=== PATIENT | female | born 1940 | race Caucasian/White ===

== ENCOUNTER 2017-10-15 15:30 | Emergency (ER) | payer MEDICARE, BC ==
[2017-10-15 15:41] VITALS: O2SAT 100
[2017-10-15] MEDS ORDERED: TRANDATE 20 MG/5 ML SYRINGE IV ONE ×2 (15:52→15:55)
--- NOTE | 2017-10-15 15:53 | ERPHSYRPT ---
- History of Present Illness Time Seen by Provider: 10/15/17 15:32 Source: patient, EMS, group home records Patient Subjective Stated Complaint: PT FROM [facility] PT STATES SHE WAS WATCHING TV AND. NOTICED SOME BLOOD COMING FROM HIS RIGHT EAR. PT STATES SHE HAS ALSO HAD A HEADACHE TODAY STATES. THEY GAVE HER TWO TYLENOL EARLIER TODAY. Triage Nursing Assessment: PT ALERT AND ORIENTED X 3 PIN WARM ADN DRY RESP EASY NON LABORED BLEEDING NOTED FROM RIGHT EAR. Physician History: CC: headache Hx: 77 y/o patient from [facility]. She sees Dr Sarah Daniels. Bloody nose this AM. Stopped. Now right ear bleeding. She complains of headache. No fall or injury. She takes coumadin. She has been on cipro recently. Timing/Duration: today Severity: moderate Allergies/Adverse Reactions: Penicillins Allergy (Severe, Verified 08/02/16 18:35) Difficulty Breathing vancomycin Allergy (Severe, Verified 08/02/16 18:35) Blisters latex Allergy (Intermediate, Verified 08/02/16 18:35) Itching Sulfa (Sulfonamide Antibiotics) Allergy (Intermediate, Verified 08/02/16 18:35) Rash adhesive Adverse Reaction (Intermediate, Verified 08/02/16 18:35) Rash atorvastatin calcium [From Lipitor] Adverse Reaction (Intermediate, Verified 18:35) Joint Aches fragrance Adverse Reaction (Intermediate, Uncoded 08/02/16 18:35) Itching Home Medications: Allopurinol 100 mg [Zyloprim 100 mg] 100 mg PO BID 12/20/12 [History] Calcitriol 0.25 mcg PO DAILY 12/20/12 [History] Fenofibrate Nanocrystallized [Tricor] 67 mg PO DAILY 12/20/12 [History] Isosorbide Mononitrate 30 mg [Imdur 30 MG] 30 mg PO DAILY 12/20/12 [History ] Metoprolol Succinate 100 mg PO BID 12/20/12 [History] Ranolazine 500 MG [Ranexa 500 MG] 500 mg PO BID 12/20/12 [History] Bumetanide 1 mg [Bumex 1 mg] 1 mg PO DAILY 05/19/14 [History] Loperamide HCl 2 mg [Imodium 2 mg] 2 mg PO DAILY 05/19/14 [History] Pantoprazole Sodium [Protonix] 40 mg PO BID 05/12/16 [History] Acetaminophen [Tylenol] 650 mg PO Q4HPRN PRN 08/02/16 [History] Amlodipine Besylate 10 mg [Norvasc 10 MG] 10 mg PO DAILY 08/02/16 [History] Aspirin [Aspirin EC] 81 mg PO DAILY 08/02/16 [History] Clonidine HCl 0.1 mg [Catapres 0.1 MG] 0.1 mg PO Q6H 08/02/16 [History] Clopidogrel Bisulfate 75 mg [PLAVIX 75 MG Tablet] 75 mg PO DAILY 08/02/16 [History] Levothyroxine Sodium 50 Mcg [Synthroid 50 Mcg] 62.5 mcg PO DAILY 08/02/16 [History] Magnesium Oxide 400 mg [Mag-Ox 400] 400 mg PO TID 08/02/16 [History] Nitroglycerin 0.4 mg Tablet [Nitrostat 0.4 MG Tablet] 0.4 mg SL UD [History] Oxycodone HCl/Acetaminophen [Percocet 7.5-325 mg Tablet] 1 each PO Q6HPRN PRN [History] Warfarin Sodium 3 mg [Coumadin 3 MG] 3 mg PO DAILY 08/02/16 [History] Hx Tetanus, Diphtheria Vaccination/Date Given: No Hx Influenza Vaccination/Date Given: Yes Hx Pneumococcal Vaccination/Date Given: No Immunizations Up to Date: Yes - Review of Systems Constitutional: No Fever, No Chills Eyes: No Vision Changes Ears, Nose, & Throat: Ear Discharge (right ear bleeding), Epistaxis Respiratory: No Cough, No Dyspnea Cardiac: No Chest Pain Abdominal/Gastrointestinal: No Abdominal Pain, No Nausea, No Vomiting Skin: No Rash Neurological: Headache, No Focal Weakness, No Parasthesia All Other Systems: Reviewed and Negative - Past Medical History Pertinent Past Medical History: Yes Neurological History: Migraines, TIA ENT History: Cataracts Cardiac History: Deep Vein Thrombosis, High Cholesterol, Hypertension Respiratory History: Bronchitis, COPD Endocrine Medical History: Diabetes Type II, Hypothyroidism Musculoskeletal History: Arthritis, Fibromyalgia GI Medical History: GERD, Hernia, Irritable Bowel, Other History: No Pertinent History, Renal Disease Psycho-Social History: Anxiety, Depression Female Reproductive Disorders: No Pertinent History Other Medical History: Anemia - Past Surgical History Past Surgical History: Yes Neuro Surgical History: No Pertinent History Cardiac: Cardiac Catheterization, Cardiac Stent Respiratory: No Pertinent History Gastrointestinal: Appendectomy, Bowel Surgery, Colon Resection Genitourinary: No Pertinent History Musculoskeletal: Orthopedic Surgery Female Surgical History: Hysterectomy, Tubal Ligation Other Surgical History: bladder suspension, CVL placement-port, heart stent x2 jun 2016, 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 right arm repair - Social History Smoking Status: Never smoker Exposure to second hand smoke: No Drug Use: none Patient Lives Alone: No - Female History Hx Last Menstrual Period: N/A Hx Now: No - Nursing Vital Signs Nursing Vital Signs: Initial Vital Signs Temperature 98.4 F 10/15/17 15:32 Pulse Rate 70 10/15/17 15:32 Respiratory Rate 18 10/15/17 15:32 Blood Pressure 192/74 10/15/17 15:32 O2 Sat by Pulse Oximetry 100 10/15/17 15:32 Pain Scale Pain Intensity 0 - Physical Exam General Appearance: alert, obese, other (pleasant lady) Eye Exam: PERRL/EOMI Ears, Nose, Throat Exam: moist mucous membranes, other (no current epistaxis, right ear has mild oozing of blood from canal with gauze) Neck Exam: normal inspection, non-tender, supple Respiratory Exam: normal breath sounds, lungs clear Cardiovascular Exam: regular rate/rhythm Gastrointestinal/Abdomen Exam: soft, No tenderness, No distention Extremity Exam: normal inspection, pedal edema Neurologic Exam: alert, oriented x 3, cooperative, gas controller II-XII nml as tested, sensation nml, No motor deficits Skin Exam: warm, dry, No rash SpO2 Interpretation: normal SpO2: 100 Oxygen Delivery: Room Air - Course Nursing assessment & vital signs reviewed: Yes Ordered Tests: Active Orders 24 hr Category Date Time Status IV Insertion STAT Care 10/15/17 15:32 Active HEAD WITHOUT CONTRAST [CT] Stat Exams 10/15/17 15:45 Completed CBC W DIFF Stat Lab 10/15/17 15:57 Completed CMP Stat Lab 10/15/17 15:57 Completed PROTIME WITH INR Stat Lab 10/15/17 15:57 Completed Medication Summary Discontinued Medications Generic Name Dose Route Start Last Admin Trade Name Noemi PRN Reason Stop Dose Admin Labetalol HCl 10 mg 10/15/17 15:52 10/15/17 16:07 Trandate 20 Mg/5 Ml Syringe IV 10/15/17 15:53 10 mg STAT ONE Administration Labetalol HCl Confirm 10/15/17 15:55 Trandate 20 Mg/5 Ml Syringe Administered 10/15/17 15:56 Dose 20 mg IV .[employer] ONE Lab/Rad Data: Laboratory Result Diagrams 10/15/17 15:57 10/15/17 15:57 Laboratory Results 10/15/17 10/15/17 10/15/17 Range/Units 15:57 15:57 15:57 WBC (4.0-10.5) K/mm3 RBC (4.1-5.4) M/mm3 Hgb (12.0-16.0) gm/dl Hct (35-47) % MCV (78-100) fl MCH (26-32) pg MCHC (32-36) g/dl RDW (11.5-14.0) % Plt Count (150-450) K/mm3 MPV (6-9.5) fl Gran % (36.0-66.0) % Lymphocytes % (24.0-44.0) % Monocytes % (0.0-12.0) % Eosinophils % (0.00-5.0) % Basophils % (0.0-0.4) % Basophils # (0-0.4) INR 3.35 H (0.8-3.0) Sodium 132 L (136-145) mEq/L Potassium 4.6 (3.5-5.1) mEq/L Chloride 98 (98-107) mEq/L Carbon Dioxide 24.7 (21-32) mEq/L Anion Gap 13.8 (5-15) MEQ/L BUN 35 H (9-20) mg/dL Creatinine 3.06 H (0.55-1.30) mg/dl Estimated GFR 16 ML/MIN Glucose 182 H (70-110) MG/DL Calcium 8.6 (8.5-10.1) mg/dL Total Bilirubin 0.20 (0.2-1.0) mg/dL AST 15 (15-37) U/L ALT 11 L (12-78) U/L Alkaline Phosphatase 47 (46-116) U/L Serum Total Protein 6.9 (6.4-8.2) gm/dL Albumin 2.8 L (3.4-5.0) g/dL ABO Group A Rh Factor NEGATIVE Antibody Screen NEGATIVE (NEGATIVE) 10/15/17 Range/Units 15:57 WBC 9.3 (4.0-10.5) K/mm3 RBC 2.80 L (4.1-5.4) M/mm3 Hgb 8.4 L (12.0-16.0) gm/dl Hct 26.6 L (35-47) % MCV 95.0 (78-100) fl MCH 30.0 (26-32) pg MCHC 31.6 L (32-36) g/dl RDW 17.0 H (11.5-14.0) % Plt Count 277 (150-450) K/mm3 MPV 9.8 H (6-9.5) fl Gran % 77.0 H (36.0-66.0) % Lymphocytes % 15.0 L (24.0-44.0) % Monocytes % 5.2 (0.0-12.0) % Eosinophils % 2.6 (0.00-5.0) % Basophils % 0.2 (0.0-0.4) % Basophils # 0.02 (0-0.4) INR (0.8-3.0) Sodium (136-145) mEq/L Potassium (3.5-5.1) mEq/L Chloride (98-107) mEq/L Carbon Dioxide (21-32) mEq/L Anion Gap (5-15) MEQ/L BUN (9-20) mg/dL Creatinine (0.55-1.30) mg/dl Estimated GFR ML/MIN Glucose (70-110) MG/DL Calcium (8.5-10.1) mg/dL Total Bilirubin (0.2-1.0) mg/dL AST (15-37) U/L ALT (12-78) U/L Alkaline Phosphatase (46-116) U/L Serum Total Protein (6.4-8.2) gm/dL Albumin (3.4-5.0) g/dL ABO Group Rh Factor Antibody Screen (NEGATIVE) - Progress Progress Note: 10/15/17 15:54 She has headache, bleeding, hypertensive. Likely coumadin coagulopathy secondary to cipro and coumadin. Will get CT head to rule out ICH. 10/15/17 17:12 The bleeding si stopped in right ear. Head Ct neg. BP better. Called Dr Zach Daniels. Will return to [facility], hold coumadidn and plavix for 2 days, restart lower, and watch BP. Pt and family aware and agree. Counseled pt/family regarding: lab results, diagnosis, need for follow-up - Departure Time of Disposition: 17:13 Departure Disposition: Extended Care Facility Clinical Impression: bleeding right ear canal, Chronic renal failure, Chronic anemia, Headache, Hypertension, Anticoagulated on warfarin Condition: Fair Critical Care Time: No Referrals: RAJWINDER PAL [Primary Care Provider] - Instructions: Warfarin Additional Instructions: Hold coumadin and plavix Wednesday and Wednesday. Resume plavix Wednesday. Resume coumadin Wednesday at half the dose daily. INR Wednesday. Check BP QID and call Dr Sarah Daniels for problems or concerns.
[2017-10-15 16:03] LABS: BASOPHIL % 0.2 % (0.0-0.4); Basophil (Absolute #) 0.02 (0-0.4); Eosinophil % 2.6 % (0.00-5.0); Eosinophil (Absolute #) 0.24 (0-0.5); Granulocyte Absolute (ANC) 7.15 (1.4-6.9); Hematocrit 26.6 % (35-47); Hemoglobin 8.4 gm/dl (12.0-16.0); Lymphocyte (Absolute #) 1.39 (1.0-4.6); Mean Corpuscular Hgb Concent. 31.6 g/dl (32-36); Mean Platelet Volume 9.8 fl (6-9.5); Monocyte (Absolute #) 0.48 (0.0-1.3); Monocytes % 5.2 % (0.0-12.0); Platelet Count 277 K/mm3 (150-450); White Blood Count 9.3 K/mm3 (4.0-10.5)
--- NOTE | 2017-10-15 16:18 | XRAY ---
Indication: Headache. Blood in right ear. No known injury. Multiple contiguous axial images obtained through the head without contrast. Comparison: May 19, 2014. Stable age-appropriate global atrophy and mild periventricular degenerative micro-ischemia bilaterally. No acute intracranial hemorrhage, abnormal extra-axial fluid collection, or mass effect. Fourth ventricle is midline without hydrocephalus. Burns-white matter differentiation preserved. Bony calvarium intact. Visualized paranasal sinuses, mastoid air cells, and middle ears are clear. Impression: Stable nonacute senile brain. CTDI 71.05
[2017-10-15 16:20] LABS: INR 3.35 (0.8-3.0)
[2017-10-15 16:26] LABS: ALBUMIN 2.8 g/dL (3.4-5.0); ANION GAP 13.8 MEQ/L (5-15); BILIRUBIN,TOTAL 0.2 mg/dL (0.2-1.0); Calcium 8.6 mg/dL (8.5-10.1); Carbon Dioxide 24.7 mEq/L (21-32); Creatinine 1 3.06 mg/dl (0.55-1.30); Potassium 4.6 mEq/L (3.5-5.1); Total Protein 6.9 gm/dL (6.4-8.2)
[2017-10-15 16:52] LABS: ABO TYPING A; Antibody Screen NEGATIVE (NEGATIVE); RH TYPING NEGATIVE
[2017-10-15 17:56] VITALS: BP 146/88; PULSE 81
== END 2017-10-15 18:00 ==
LOC: ED 15:30
DX: H92.21 Otorrhagia, right ear (principal); R51 Headache; R04.0 Epistaxis; Z79.01 Long term (current) use of anticoagulants; Z79.899 Other long term (current) drug therapy; N18.9 Chronic kidney disease, unspecified; D64.9 Anemia, unspecified; I10 Essential (primary) hypertension
CPT/HCPCS: 36000; 36415; 70450; 80053; 85025; 85610; 86850; 86900; 86901; 96374; 99284